=== PATIENT | male | born 1990 | race Caucasian/White ===

== ENCOUNTER 2022-05-03 10:58 | Emergency (ER) | payer OTHER, SELFPAY ==
--- NOTE | 2022-05-03 11:09 | EXP.UTC ---
Discharge Plan Disposition Patient Disposition: Home, Self-Care Condition: Good Prescriptions Prescriptions: New ugpyhfmjukwxqoa-bdawqrish-VO [Bromfed DM] 2-30-10 mg/5 mL Syrup 10 ml PO Q4H PRN (Reason: Cough) Qty: 240 0RF Referrals Follow up/Referrals: Marissa Seo [Primary Care Provider] - See instructions Clinical Impressions Clinical Impression: Exposure to COVID-19 virus, Cough Stand Alone Forms Stand Alone Forms: Work/School Release Discharge ED Provider: Vero Garg [facility] [place] HPI General Stated complaint: chest congestion,cough,fever Time Seen by Provider: 05/03/22 12:02 History of Present Illness Provider Complaint: Patient states that and kids tested positive for COVID on Friday and now he is having symptoms States that he is having sinus congestion and drainage with cough and low grade fever so he came in to get tested Related Data Previous Rx's Medication Instructions Recorded sbxfjkphltdghul-rujbacrcjbwykoa-WL 10 ml PO Q4H PRN Cough #240 mL 05/03/22 2 mg-30 mg-10 mg/5 mL oral syrup (Bromfed DM) Allergies Allergy/AdvReac Type Severity Reaction Status Date / Time No Known Allergies Allergy Verified 05/03/22 11:52 [facility] Social History (Updated 05/03/22 @ 11:51 by Ute Kaur RN) Smoking Status: Unknown if ever smoked alcohol intake: never current occupational status: employed Travel in the last 8 weeks: None ROS Obtained: Yes All systems reviewed & no additional complaints except as documented and Yes Systems reviewed as appropriate & no additional complaints except as documented Constitutional Constitutional: Reports system reviewed and no additional complaints, except as documented, Reports as per HPI, Reports body ache, Reports chills, Reports fatigue, Reports fever(s) and Reports headache(s) ENT Ears, Nose, Mouth, and Throat: Reports system reviewed and no additional complaints, except as documented, Reports as per HPI, Reports headache(s), Reports nasal congestion and Reports nasal discharge Cardiovascular Cardiovascular: Reports system reviewed and no additional complaints, except as documented and Reports as per HPI Respiratory Respiratory: Reports system reviewed and no additional complaints, except as documented, Reports as per HPI and Reports cough Gastrointestinal Gastrointestingal: Reports system reviewed and no additional complaints, except as documented and as per HPI Neurologic Neurologic: Reports headache(s) Endocrine Endocrine: Reports fatigue Physical Exam General General appearance: alert and in no apparent distress Expanded ENT Exam Nose exam: Present other (clear drainage); Absent sinus tenderness Respiratory Respiratory exam: Present normal lung sounds bilaterally; Absent respiratory distress or wheezes Cardiovascular Cardiovascular exam: Present regular rate and normal rhythm Abdominal Exam Abdominal exam: Present soft, distention and normal bowel sounds Neurological Exam Neurological exam: Present alert, oriented X3 and normal gait Medical Decision Making Rolando Inquiry Pt receiving controlled substance: No
[2022-05-03 11:35] VITALS: BP 121/77; PULSE 89; RESP 18; TEMP 37.2; O2SAT 97; BMI 27.3
[2022-05-03 12:07] VITALS: BP 121/77; PULSE 89; RESP 18; TEMP 37.2; O2SAT 97
== END 2022-05-03 12:10 | disposition home or self-care (01) ==
PROVIDERS: Emergency Provider Nurse Practitioner; PCP Family Medicine
DX: U07.1 COVID-19 (principal); R05.9 Cough, unspecified; R53.82 Chronic fatigue, unspecified; R51.9 Headache, unspecified
CPT/HCPCS: 99213; C9803; G0463; U0003; U0005